=== PATIENT | male | born 1945 | race Caucasian/White ===

== ENCOUNTER → 2022-05-27 14:25 | Outpatient (BNVA) | payer MEDICARE, BC, SELFPAY | PROVIDERS: PCP Nurse Practitioner Family; Visit Provider Psychiatry & Neurology Neurology | DX: H81.10 Benign paroxysmal vertigo, unspecified ear (principal); G62.9 Polyneuropathy, unspecified; R26.9 Unspecified abnormalities of gait and mobility; Z79.899 Other long term (current) drug therapy | CPT/HCPCS: 99202 ==

== ENCOUNTER → 2022-08-22 10:55 | Outpatient (BNVA) | payer MEDICARE, BC, SELFPAY | PROVIDERS: PCP Nurse Practitioner Family; Visit Provider Psychiatry & Neurology Neurology | DX: H81.10 Benign paroxysmal vertigo, unspecified ear (principal); R26.9 Unspecified abnormalities of gait and mobility; G62.9 Polyneuropathy, unspecified | CPT/HCPCS: 99212 ==

== ENCOUNTER → 2023-02-11 09:23 | Outpatient (BNVA) | payer MEDICARE, BC, SELFPAY | PROVIDERS: PCP Nurse Practitioner Family; Visit Provider Psychiatry & Neurology Neurology | DX: G62.9 Polyneuropathy, unspecified (principal); B02.29 Other postherpetic nervous system involvement | CPT/HCPCS: 99212 ==

== ENCOUNTER 2023-07-17 10:14 | Outpatient (AMB) | payer MEDICARE, BC, SELFPAY ==
--- NOTE | 2023-07-17 10:15 | MHC.OFFVIS ---
Intake Vital Signs 07/17/23 10:17 Height 6 ft Weight 127 lb BMI 17.2 BP 110/62 Blood Pressure Location Rt brachial Position Sitting Pulse 67 Pulse Source Pulse Oximeter Pulse Oximetry (%) 98 Oxygen Delivery Method Room Air Intake Visit Reasons: 6m follow up gait disorder-confirmed Intake Note: Pt presents to the office today for a 6 month follow up visit with his Zenaida.Pt states his gait has been fair but he believes it has gotten worse since his last visit as well as his neuropathy. He states its not a major change but it has been noticable. Accompanied by: Spouse Allergies sulfa Allergy (Severe, Uncoded 07/17/23 10:18) Hives iv contract Allergy (Mild, Uncoded 07/17/23 10:18) Anxiety Medication List - Last Reconciled 07/17/23 by Lashonda Lewis MD apixaban (Eliquis) 5 mg PO BID capsaicin 0.1% (Arthritis Pain Relief (capsaicin)) 1 appl topical TID cetirizine (Zyrtec) 10 mg PO DAILY PRN cholecalciferol (vitamin D3) 25 mcg PO DAILY cyanocobalamin (vitamin B-12) 1,000 mcg PO DAILY fluorouracil 0.5% 1 appl topical DAILY lorazepam 0.5 mg PO DAILY PRN loteprednol etabonate 0.5% 1 drp ophthalmic (eye) BID lysine (L-Lysine) 500 mg PO DAILY magnesium glycinate mg PO multivitamin 1 tab PO DAILY nebivolol (Bystolic) 1.5 mg PO DAILY PRN omega 6-ifg-lqs-fish oil 1,000 mg (120 mg-180 mg) (Fish Oil) 1 cap PO DAILY s-adenosylmethionine (AVA-e) 200 mg PO DAILY vitamin B complex-folic acid 50 mcg (Balanced B-50 Complex (with folic acid)) tabs PO HPI HPI Comments History of Present Illness Details 78y/o male comes for follow up of balance issues and neuropathy.He feels his gait is mildly worse- balance is worse. His post herpetic neuralgia is better. He stopped gabapentin and pregabalin 3 mths ago . - he is not very regular with exercise -walks several times a week.No falls In 2017 he had an episode of vertigo , was seen by ENT diagnosed with vestibular neuritis. AFter that he had few episodes of vertigo diagnosed of BPPV and had vestibular rehab which helped with severe episodes. He was diagnosed with peripheral neuropathy in 2017 - mild as per EMG . He feels better when he walks more.He has numbness .He has neck pain . No back pain.He has osteoarthritis. He has been using more lorazepam using everyday for past 2 weeks . He wakes up in the middle of the night with panic. [facility] Medical History Post herpetic neuralgia Shingles Neuropathy BPPV (benign paroxysmal positional vertigo) Hypothyroidism Headache GERD (gastroesophageal reflux disease) Skin cancer Atrial fibrillation Surgical History Hx of thyroidectomy History of YAG laser capsulotomy of lens Hx of bilateral inguinal hernia repair History of sebaceous adenoma Hx of basal cell carcinoma Hx of appendectomy Hx of varicose vein ligation Hx of tonsillectomy Social History Household Members: Spouse Alcohol intake: former Patient Tobacco Use Status: Former Tobacco user Physical Exam Vital Signs: Last Vital Signs Pulse 67 07/17/23 10:17 BP 110/62 07/17/23 10:17 Pulse Ox 98 07/17/23 10:17 Oxygen Delivery Method Room Air 07/17/23 10:17 BMI result Body Mass Index 17.2 Const Other: left lower chest- mild hyperesthesia and upper back a patch of hyperesthesia General: cooperative, healthy appearing, comfortable and no acute distress Nutritional Appearance: average body habitus Orientation/consciousness: patient oriented x3 HEENT Head: Yes normal to inspection Neck Neck: Yes normal visual inspection and Yes full ROM Neuro Other: Decreased facial expression Decreased blink Mild hypophonia General: patient oriented x3, tone normal and moves all extremities Cranial nerves: Yes CN's II-XII intact bilaterally Cognition (Neuro): normal cognition Gait exam (Neuro): Other gait observations present (mild slowing , mild stoop , decreased arm swings bilaterally) Motor exam (neuro): 5/5 motor strength present throughout Coordination: [id number] test normal Psych Speech and movement: Normal speech and movement present Affect: normal affect Attitude: cooperative Assessment & Plan Assessment & Plan (1) Post herpetic neuralgia: Comment: left chest Code(s): B02.29 - Other postherpetic nervous system involvement (2) 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
[2023-07-17 10:17] VITALS: BP 110/62; PULSE 67; O2SAT 98; BMI 17.2
== END 2023-07-17 10:52 | disposition home or self-care (01) ==
PROVIDERS: Visit Provider Psychiatry & Neurology Neurology
DX: B02.29 Other postherpetic nervous system involvement (principal); R26.9 Unspecified abnormalities of gait and mobility; G62.9 Polyneuropathy, unspecified
CPT/HCPCS: 99214

== ENCOUNTER → 2023-07-17 10:14 | Outpatient (BNVA) | payer MEDICARE, BC, SELFPAY | PROVIDERS: Visit Provider Psychiatry & Neurology Neurology | DX: R26.9 Unspecified abnormalities of gait and mobility (principal); G62.9 Polyneuropathy, unspecified; B02.29 Other postherpetic nervous system involvement | CPT/HCPCS: 99212 ==

== ENCOUNTER 2024-01-22 10:30 | Outpatient (AMB) | payer MEDICARE, BC, SELFPAY ==
--- NOTE | 2024-01-22 10:34 | MHC.OFFVIS ---
Intake Vital Signs 01/22/24 10:35 Height 6 ft Weight 125 lb BMI 17.0 BP 132/62 Blood Pressure Location Rt brachial Position Sitting Respiration 16 Pulse 62 Pulse Source Pulse Oximeter Pulse Oximetry (%) 98 Oxygen Delivery Method Room Air Intake Visit Reasons: 6 mnts f/u appt for gait-CONF Intake Note: Pt presents to the office for a 6 month follow up for gait disorder. Feels his balance is off in the mornings. 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 His post herpetic neuralgia is better. Gabapentin 100mg helps with his sleep. - he is not very regular with exercise -walks several times a week.No falls In 2017 he had an episode of vertigo , was seen by ENT diagnosed with vestibular neuritis. AFter that he had few episodes of vertigo diagnosed of BPPV and had vestibular rehab which helped with severe episodes. He was diagnosed with peripheral neuropathy in 2017 - mild as per EMG . He feels better when he walks more.He has numbness .He has neck pain . No back pain.He has osteoarthritis. He has been using more lorazepam using everyday for past 2 weeks . He wakes up in the middle of the night with panic. [facility] Medical History Post herpetic neuralgia Shingles Neuropathy BPPV (benign paroxysmal positional vertigo) Hypothyroidism Headache GERD (gastroesophageal reflux disease) Skin cancer Atrial fibrillation Surgical History Hx of thyroidectomy History of YAG laser capsulotomy of lens Hx of bilateral inguinal hernia repair History of sebaceous adenoma Hx of basal cell carcinoma Hx of appendectomy Hx of varicose vein ligation Hx of tonsillectomy Social History Household Members: Spouse Alcohol intake: former Patient Tobacco Use Status: Former Tobacco user Physical Exam Vital Signs: Last Vital Signs Pulse 62 01/22/24 10:35 Resp 16 01/22/24 10:35 BP 132/62 01/22/24 10:35 Pulse Ox 98 01/22/24 10:35 Oxygen Delivery Method Room Air 01/22/24 10:35 BMI result Body Mass Index 17.0 Const Other: left lower chest- mild hyperesthesia and upper back a patch of hyperesthesia General: cooperative, healthy appearing, comfortable and no acute distress Nutritional Appearance: average body habitus Orientation/consciousness: patient oriented x3 HEENT Head: Yes normal to inspection Neck Neck: Yes normal visual inspection and Yes full ROM Neuro Other: very mild Decreased facial expression very mild blink very Mild hypophonia General: patient oriented x3, tone normal and moves all extremities Cranial nerves: Yes CN's II-XII intact bilaterally Cognition (Neuro): normal cognition Gait exam (Neuro): Other gait observations present (mild slowing , mild stoop , decreased arm swings bilaterally) Motor exam (neuro): 5/5 motor strength present throughout Coordination: [id number] test normal Psych Speech and movement: Normal speech and movement present Affect: normal affect Attitude: cooperative Assessment & Plan Assessment & Plan (1) Post herpetic neuralgia: Comment: left chest Code(s): B02.29 - Other postherpetic nervous system involvement (2) Gait disorder: Comment: ? parkinsonism Code(s): R26.9 - Unspecified abnormalities of gait and mobility (3) Neuropathy: Code(s): G62.9 - Polyneuropathy, unspecified Plan continue capsaicin 0.1% tid gabapentin 100mg 1-3 qhs will follow up on his extrapyramidal findings continue exercise Coding Level of Care Code Est Pt Level 4 (46871) Diagnoses Post herpetic neuralgia B02.29 Gait disorder R26.9 Neuropathy G62.9
[2024-01-22 10:35] VITALS: BP 132/62; PULSE 62; RESP 16; O2SAT 98; BMI 17.0
== END 2024-01-22 11:13 | disposition home or self-care (01) ==
PROVIDERS: PCP Nurse Practitioner Family; Visit Provider Psychiatry & Neurology Neurology
DX: B02.29 Other postherpetic nervous system involvement (principal); R26.9 Unspecified abnormalities of gait and mobility; G62.9 Polyneuropathy, unspecified
CPT/HCPCS: 99214

== ENCOUNTER → 2024-01-22 10:30 | Outpatient (BNVA) | payer MEDICARE, BC, SELFPAY | PROVIDERS: PCP Nurse Practitioner Family; Visit Provider Psychiatry & Neurology Neurology | DX: B02.29 Other postherpetic nervous system involvement (principal); R26.9 Unspecified abnormalities of gait and mobility; G62.9 Polyneuropathy, unspecified | CPT/HCPCS: 99212 ==

== ENCOUNTER 2025-05-16 12:25 | Outpatient (AMB) | payer MEDICARE, BC, SELFPAY ==
--- NOTE | 2025-05-16 12:29 | A.OFFVIS_ITS ---
Vital Signs 05/16/25 12:31 Weight 134 lb BP 120/74 Blood Pressure Location Lt brachial Position Sitting Pulse 78 Pulse Source Pulse Oximeter Pulse Oximetry (%) 98 Oxygen Delivery Method Room Air Intake Visit Reasons: 1 year F/U Intake Note: Patient presents 1 year follow up for Gait/Neuropathy. Neuropathy in feet and toes has gotten worse and so has balance [employer] Spr[employer] Unit Feeder Required: No Accompanied by: Spouse Allergies sulfa Allergy (Severe, Uncoded 05/16/25 12:33) Hives iv contract Allergy (Mild, Uncoded 05/16/25 12:33) Anxiety HPI Comments Details: 80y/o male comes for follow up of balance issues and neuropathy.He feels his gait is mildly worse- balance is worse. His post herpetic neuralgia left lower back is better. He stopped gabapentin , his pain has resolved. - he is not very regular with exercise -walks several times a week.No falls In 2017 he had an episode of vertigo , was seen by ENT diagnosed with vestibular neuritis. AFter that he had few episodes of vertigo diagnosed of BPPV and had vestibular rehab which helped with severe episodes. He was diagnosed with peripheral neuropathy in 2017 - mild as per EMG . He feels better when he walks more.He has numbness .He has neck pain . No back pain.He has osteoarthritis. [facility] Medical History Post herpetic neuralgia Shingles Neuropathy BPPV (benign paroxysmal positional vertigo) Hypothyroidism Headache GERD (gastroesophageal reflux disease) Skin cancer Atrial fibrillation Surgical History Hx of thyroidectomy History of YAG laser capsulotomy of lens Hx of bilateral inguinal hernia repair History of sebaceous adenoma Hx of basal cell carcinoma Hx of appendectomy Hx of varicose vein ligation Hx of tonsillectomy Social History Household Members: Spouse Alcohol intake: former Patient Tobacco Use Status: Former Tobacco user Physical Exam Vital Signs: Last Vital Signs Pulse 78 05/16/25 12:31 BP 120/74 05/16/25 12:31 Pulse Ox 98 05/16/25 12:31 Oxygen Delivery Method Room Air 05/16/25 12:31 Const General: cooperative, healthy appearing, comfortable and no acute distress Nutritional Appearance: average body habitus Orientation/consciousness: patient oriented x3 HEENT Head: Yes normal to inspection Neck Neck: Yes normal visual inspection and Yes full ROM Neuro Other: very mild Decreased facial expression very mild blink very Mild hypophonia General: patient oriented x3, tone normal and moves all extremities Cranial nerves: Yes CN's II-XII intact bilaterally Cognition (Neuro): normal cognition Gait exam (Neuro): Other gait observations present (mild slowing , mild stoop , decreased arm swings bilaterally) Motor exam (neuro): 5/5 motor strength present throughout Deep tendon reflexes (DTR's): Right triceps reflex intensity grade: 1+, Left triceps reflex intensity grade: 1+, Rt Biceps (C5, C6): 1+, Left biceps reflex intensity grade: 1+, Right brachioradialis reflex intensity grade: 1+, Left brachioradialis reflex intensity grade: 1+, Right patellar reflex intensity grade: 1+ and Left patellar reflex intensity grade: 1+ Coordination: [id number] test normal Psych Speech and movement: Normal speech and movement present Affect: normal affect Attitude: cooperative Assessment & Plan Assessment & Plan (1) Post herpetic neuralgia: Comment: left chest Code(s): B02.29 - Other postherpetic nervous system involvement Category: Medical (2) Gait disorder: Comment: ? parkinsonism Code(s): R26.9 - Unspecified abnormalities of gait and mobility Category: Medical (3) Neuropathy: Code(s): G62.9 - Polyneuropathy, unspecified Category: Medical Plan Continue duloxetine will follow up on his extrapyramidal findings continue exercise Coding Level of Care Code Est Pt Level 3 (23371) Diagnoses Post herpetic neuralgia B02.29 Gait disorder R26.9 Neuropathy G62.9
[2025-05-16 12:31] VITALS: BP 120/74; PULSE 78; O2SAT 98
--- OUTSIDE RECORDS SUMMARY | 2025-05-16 12:57 | XMS_ITS | Encounter Summary ---
Author Organization [facility] Address [address] [place] [phone] Phone Care Team Providers Care Snake Charmer Name Role Phone Viri Harris CNP Primary Care Provide r Jerry Fields DO Unavailable Encounter Details Date Type Department Care Team ([facility] st Contact Info) Description 07/24/2022 Prep for Surgery [facility] Podiatry [address] [place] [address] Rg Astudillo DPM [address] [facility] [address] [place] [address] [email or web address] Verruca plantaris (Primary Dx) Social History Tobacco Use Types Packs/Day Years Used Date Smoking Tobacco: Former Smokeless Tobacco: Never Alcohol Use Standard Drinks/Week Comments Yes 0 (1 standard drink = 0.6 oz pur e alcohol) Sex and Gender Information Value Date Recorded Sex Assigned at Male 07/30/2021 1:39 PM EDT Legal Sex Male 10:11 PM EDT Gender Identity Male 07/16/2021 10:12 AM EDT Sexual Orientation Not on file documented as of this encounter Plan of Treatment Not on file documented as of this encounter Visit Diagnoses Diagnosis Verruca plantaris- Primary Plantar wart documented in this encounter Care Teams Snake Charmer Relationship Specialty Start Date End Date Viri Harris CNP [address] [place] [id number] PCP - General Family Medicine 08/28/18 Jerry Fields DO [address] [place] [address] jose Insurance Assigned Provider 01/17/24 10/18/24 documented as of this encounter Additional Source Comments The information contained in this document represents components of the legal health record. It is not the complete legal health record.[facility]
== END 2025-05-16 13:06 | disposition home or self-care (01) ==
LOC: HO.HSMS 12:26
PROVIDERS: PCP Nurse Practitioner Family; Visit Provider Psychiatry & Neurology Neurology
DX: B02.29 Other postherpetic nervous system involvement (principal); R26.9 Unspecified abnormalities of gait and mobility; G62.9 Polyneuropathy, unspecified
CPT/HCPCS: 99213

== ENCOUNTER → 2025-05-16 12:25 | Outpatient (BNVA) | payer MEDICARE, BC, SELFPAY | PROVIDERS: PCP Nurse Practitioner Family; Visit Provider Psychiatry & Neurology Neurology | DX: B02.29 Other postherpetic nervous system involvement (principal); R26.9 Unspecified abnormalities of gait and mobility; G62.9 Polyneuropathy, unspecified | CPT/HCPCS: 99212 ==